=== PATIENT | female | born 1980 | race Caucasian/White ===

== ENCOUNTER 2016-11-29 21:58 | Emergency (ER) | payer SELFPAY ==
[~2016-11-29] VITALS: Ht 170.2 cm; Wt 90.7 kg
[~2016-11-29 21:58] MED LIST: HYDR-3729 PO; IBP600T1 PO; MEDR10TA PO; PNV1TABL9 PO
[2016-11-29] MEDS ORDERED: PNV1COMB25 PO (22:11)
[2016-11-29 22:42] LABS: BASOPHILS % (AUTO) 0 % (0-10); BILIRUBIN,URINE NEGATIVE (NEGATIVE); EOSINOPHILS # (AUTO) 0.1 10^3/uL (0.0-0.3); EOSINOPHILS % (AUTO) 2 % (0-10); KETONES,URINE NEGATIVE (NEGATIVE); LEUKOCYTE ESTERASE ,URINE 2+ (NEGATIVE); LYMPHOCYTES # (AUTO) 1.4 X 10^3 (1.0-4.0); LYMPHOCYTES % (AUTO) 19 % (12-44); MEAN CORPUSCULAR HEMOGLOBIN 30 PG (25-34); MEAN CORPUSCULAR HGB CONC 33 G/DL (32-36); MEAN CORPUSCULAR VOLUME 91 FL (80-99); MEAN PLATELET VOLUME 9.4 FL (7.4-10.4); MONOCYTES # (AUTO) 0.6 X 10^3 (0.0-1.0); MONOCYTES % (AUTO) 8 % (0-12); NEUTROPHILS # (AUTO) 5.1 X 10^3 (1.8-7.8); NEUTROPHILS % (AUTO) 71 % (42-75); NITRITE,URINE NEGATIVE (NEGATIVE); PH,URINE 6.5 (5-9); PLATELET COUNT 337 10^3/uL (130-400); PROTEIN,URINE 2+ (NEGATIVE); RED BLOOD COUNT 4.24 10^6/uL (4.35-5.85); RED CELL DISTRIBUTION WIDTH 13.2 % (10.0-14.5); UROBILINOGEN,URINE NORMAL (NORMAL); WHITE BLOOD COUNT 7.2 10^3/uL (4.3-11.0)
--- NOTE | 2016-11-29 22:46 | ED GU-Female ---
General Chief Complaint: -Female Stated Complaint: VAG BLEEDING Nursing Triage Note: APPROX. 6 WEEKS , REPORTS VAGINAL BLEEDING STARTING 11/28/17 WITH CLOT PASSAGE TODAY. Nursing Sepsis Screen: No Definite Risk Source: patient Exam Limitations: no limitations History of Present Illness Time seen by provider: 22:46 Initial Comments 35-year-old female patient presents to the emergency department with complaints of vaginal bleeding beginning yesterday. States she did have intercourse with her Wednesday. Patient reports spotting yesterday with passing a large clots today. Patient estimates to be between 6-8 weeks gestation. Reports lower abdominal cramping earlier today when passing a clot. Timing/Duration: yesterday, intermittent Severity/Quality: cramping Location: suprapubic Radiation: none Activities at Onset: none Prior Genitourinary Problems: similar symptoms Sexual [place] History: less than 2 months ago, single partner Modifying Factors: Improves With Other (denies modifying factors.) Allergies and Home Medications Allergies Coded Allergies: tramadol (Unverified Adverse Reaction, Mild, N/V, 12/21/14) Home Medications Cephalexin 500 Mg Capsule #21 500 MG PO TID Prescribed by: MILA DIEGO on 11/30/16 0036 Pnv #116/Iron Fumarate/FA/Dha 1 Each Combo..pkg 1 EACH PO UD (Reported) Constitutional: No chills, No dizziness, No fever, No malaise, No weakness Respiratory: no symptoms reported Cardiovascular: no symptoms reported Gastrointestinal: see HPI abdominal pain (suprapubic abdominal pain)No constipation, No diarrhea, No loss of appetite, No nausea, No vomiting Genitourinary: see HPIdenies burning, denies dysuria, denies frequency, denies flank pain, denies pain Musculoskeletal: no symptoms reported Skin: no symptoms reported Psychiatric/Neurological: No Symptoms Reported All Other Systemes Reviewed Negative Unless Noted: Yes (Negative excepted noted.) Past Idtqwju-Tynztc-Epqwxu Hx Patient Social History Alcohol Use: Denies Use Recreational Drug Use: No Smoking Status: Never a Smoker Former Smoker/When Quit: Apr 23, 2014 Recent Foreign Travel: No Contact w/Someone Who Travel: No Recent Infectious Disease Expo: No Recent Hopitalizations: No Physical Abuse Screen: No Sexual Abuse: No Immunizations Up To Date Tetanus Booster (TDap): Unknown PED Vaccines UTD: No Date of Influenza Vaccine: Aug 13, 2014 Seasonal Allergies Seasonal Allergies: No Surgeries HX Surgeries: Yes Surgeries: Section Respiratory Hx Respiratory Disorders: No Cardiovascular Hx Cardiac Disorders: No Neurological Hx Neurological Disorders: No Reproductive System : Yes Hx : 5 Hx Para: 2 Hx Total # of Abortions (Spona: 2 Hx Reproductive Disorders: No Female Reproductive Disorders: Denies Genitourinary Hx Genitourinary Disorders: No Gastrointestinal Hx Gastrointestinal Disorders: No Musculoskeletal Hx Musculoskeletal Disorders: No Endocrine Hx Endocrine Disorders: No HEENT HX ENT Disorders: No (GLASSES) Cancer Hx Cancer: No Psychosocial Hx Psychiatric Problems: No Integumentary HX Skin/Integumentary Disorder: No Blood Transfusions Hx Blood Disorders: Yes (HX OF ANEMIA) Adverse Reaction to a Blood Tr: No Reviewed Nursing Assessment Reviewed/Agree w Nursing PMH: Yes Family Medical History Significant Family History: No Pertinent Family Hx, Other Conditions/Hx Family Medial History: Abdominal aortic aneurysm 19 FATHER GRANDPARENTS Alzheimer's disease GRANDPARENTS Cardiovascular disease 19 FATHER 19 MOTHER GRANDPARENTS Diabetes mellitus 19 MOTHER GRANDPARENTS Glaucoma GRANDPARENTS Hypertension 19 FATHER 19 MOTHER GRANDPARENTS Myocardial infarction 19 FATHER GRANDPARENTS No Family History of: AIDS Alcoholism Arthritis Asthma Cancer of mouth Cataracts Colon cancer Completed stroke Dementia Drug abuse Dysphasia Kidney disease Parkinson's disease Prostate cancer Psychosocial problem Seizure disorder Thyroid disease Tuberculosis Physical Exam Vital Signs Vital Sign - Last 12Hours 11/29/16 22:11 Temp 98.0 Pulse 74 Resp 16 B/P 153/73 Pulse Ox 100 O2 Delivery Room Air Capillary Refill : Less Than 3 Seconds General Appearance: WD/WN no apparent distress Neck: supple normal inspection Cardiovascular: normal peripheral pulses regular rate, rhythm no edema no murmur Respiratory: lungs clear normal breath sounds no respiratory distress Gastrointestinal: normal bowel sounds non tender soft no organomegalyNo distended Pelvic: other (deferred due to patient scheduled to see Dr. Hurst on . ) Back: normal inspection no CVA tenderness Extremities: no pedal edema no calf tenderness normal capillary refill Neurologic/Psychiatric: alert normal mood/affect oriented x 3 Skin: normal color warm/dry Progress/Results/Core Measures Results/Orders Lab Results Laboratory Tests Test 11/29/16 22:32 Range/Units Basophils # (Auto) 0.0 0.0-0.1 10^3/uL Basophils (%) (Auto) 0 0-10 % Eosinophils # (Auto) 0.1 0.0-0.3 10^3/uL Eosinophils (%) (Auto) 2 0-10 % Hematocrit 39 35-52 % Hemoglobin 12.8 11.5-16.0 G/DL Human Chorionic Gonadotropin, Quant 208 H <5 MIU/ML Lymphocytes # (Auto) 1.4 1.0-4.0 X 10^3 Lymphocytes (%) (Auto) 19 12-44 % Mean Corpuscular Hemoglobin 30 25-34 PG Mean Corpuscular Hemoglobin Concent 33 32-36 G/DL Mean Corpuscular Volume 91 80-99 FL Mean Platelet Volume 9.4 7.4-10.4 FL Monocytes # (Auto) 0.6 0.0-1.0 X 10^3 Monocytes (%) (Auto) 8 0-12 % Neutrophils # (Auto) 5.1 1.8-7.8 X 10^3 Neutrophils (%) (Auto) 71 42-75 % Platelet Count 337 130-400 10^3/uL Red Blood Count 4.24 L 4.35-5.85 10^6/uL Red Cell Distribution Width 13.2 10.0-14.5 % Urine Bacteria MODERATE H /HPF Urine Bilirubin NEGATIVE NEGATIVE Urine Casts NONE /LPF Urine Clarity VERY CLOUDY H Urine Color KUNAL H Urine Crystals NONE /LPF Urine Culture Indicated YES Urine Glucose (UA) NEGATIVE NEGATIVE Urine Ketones NEGATIVE NEGATIVE Urine Leukocyte Esterase 2+ H NEGATIVE Urine Mucus MODERATE H /LPF Urine Nitrite NEGATIVE NEGATIVE Urine Protein 2+ H NEGATIVE Urine RBC 2-5 H /HPF Urine RBC (Auto) 5+ H NEGATIVE Urine Specific [place] 1.015 L 1.016-1.022 Urine Squamous Epithelial Cells 25-50 H /HPF Urine Urobilinogen NORMAL NORMAL MG/DL Urine WBC 10-25 H /HPF Urine pH 6.5 5-9 White Blood Count 7.2 4.3-11.0 10^3/uL My Orders Orders-MILA DIEGO Cbc With Automated Diff (11/29/16 22:16) Hcg,Quantitative (11/29/16 22:16) Ua Culture If Indicated (11/29/16 22:16) Urine Culture (11/29/16 22:32) Us Ob<14 Wks Sngle W/Transvag (11/29/16 22:16) Rx-Cephalexin Capsule (Rx-Keflex Capsule (11/30/16 00:34) Vital Signs/I&O Vital Sign - Last 12Hours 11/29/16 22:11 Temp 98.0 Pulse 74 Resp 16 B/P 153/73 Pulse Ox 100 O2 Delivery Room Air Blood Pressure Mean: 99 Diagnostic Imaging Diagonstic Imaging: Ultrasound Plain Films/CT/US/NM/MRI: pelvis Comments endometrium measures 7 mm. No IUP. Reviewed: Other ([employer] report reviewed by me.) Departure Communication Progress Notes Laboratory and diagnostic findings discussed with the patient. Plan for discharge to home with follow-up as an outpatient on as previously scheduled with Dr. Hurst. All return precautions were discussed with the patient as described in the discharge instructions of this report. Patient voices understanding and agrees with the treatment plan. Patient case discussed with Dr. Baez, he agrees with the plan of care. Impression Impression: Primary Impression: Spontaneous miscarriage Additional Impression: Urinary tract infection Disposition: HOME, SELF-CARE Condition: Improved Departure-Patient Inst. Decision time for Depature: 00:35 Referrals: ERVIN HURST MD (PCP) Primary Care Physician NO,LOCAL PHYSICIAN (Family) Primary Care Physician Patient Instructions: Miscarriage (DC), Urinary Tract Infection, Adult (DC) Add. Discharge Instructions: All discharge instructions reviewed with patient and/or family. Voiced understanding. Medications as instructed. Tylenol Extra Strength over-the- counter as directed for pain. Ibuprofen kyne-mdz-rrtbrgd as directed for pain as needed. Drink plenty of fluids. No strenuous activity, heavy lifting, intercourse, or tampon use until released by Dr. Hurst. Follow-up with Dr. Hurst as previously scheduled for recheck, repeat labs, and for final reading of ultrasound. Return to the emergency department immediately for worsened pain, fever, vaginal bleeding with greater than 2 pads per hour for greater than 2 hours, abdominal swelling, inability urinate, or any other concerns. Scripts Cephalexin 500 Mg [id number] Mg PO TID #21 CAP Ref 0 Prov:MILA DIEGO 11/30/16 Work/School Note: Work Release Form Date Seen in the Emergency Department: Nov 30, 2016 Return to Work: Dec 01, 2016 Other Restrictions Listed Below: no heavy lifting or strenous activity until released by Dr. Hurst. MILA DIEGO Nov 29, 2016 22:46
[2016-11-29 22:54] LABS: SQUAMOUS EPITHELIAL CELL,UR 25-50 /HPF
[2016-11-30] MEDS ORDERED: RX-CEPHALEXIN (KEFLEX) 250 MG CAP PPK#4 PO STA (00:34)
[2016-11-30] MEDS ORDERED: CEPH500C PO (00:36)
[2016-11-30 00:42] VITALS: BP 130/75
--- NOTE | 2016-11-30 07:53 | Diagnostic Imaging Report ---
Clinical indication: Patient with vaginal bleeding. Patient has beta-hCG of 208. Patient with gestational age of 10 weeks, 6 days. LMP is 09/14/2016. Exam: Transabdominal and transvaginal ultrasound. Comparison: None. Findings: The uterus has normal size, shape and echogenicity and measures 7.5 cm x 4.8 cm x 6.1 cm. The endometrial stripe measures 7 mm. There is no evidence of gestational sac or intrauterine . Right and left ovaries are not visualized on this exam. Otherwise, the right and left adnexal regions show no gross abnormality. There is no significant pelvic free fluid. IMPRESSION: 1: There is no intrauterine or gestational sac seen. It is reported that patient has expected gestational age of 10 weeks, 6 days which is concerning for spontaneous of . If LMP and gestational age is not known, then this may represent a very early and trending of hCG's and followup pelvic ultrasound would be suggested. 2: The bilateral ovaries are not visualized on this exam. 3: The remainder of this exam shows no other significant abnormality. I agree with [employer] report. Dictated by: Dictated on workstation # [id number]
== END 2016-11-30 00:42 | disposition home or self-care (01) ==
LOC: EDUNIT# 21:58 → ER 22:03
DX: O03.9 Complete or unspecified spontaneous abortion without complication (principal); Z3A.01 Less than 8 weeks gestation of pregnancy; N39.0 Urinary tract infection, site not specified
CPT/HCPCS: 36415; 76801; 76817; 81000; 84702; 85025; 87088

== ENCOUNTER → 2017-06-03 | Outpatient (CLI) | payer MEDICAID ==
[~2017-06-03] MED LIST changes: +CEPH500C PO; +PNV1COMB25 PO
--- NOTE | 2017-06-03 14:01 | Diagnostic Imaging Report ---
First trimester OB ultrasound. INDICATION: Dating. FINDINGS: There is a normal-appearing single intrauterine . An embryo is seen with cardiac activity at 150 beats per minute. The crown-rump length is at 12 weeks and 3 days. HERIBERTO is 12/13/17. The ovaries are not seen, likely obscured by bowel gas. IMPRESSION: Live single intrauterine . Dictated by: Dictated on workstation # [id number]
== END ==
LOC: RAD 12:41
PROVIDERS: ATTEND Family Medicine
DX: Z36 Encounter for antenatal screening of mother (principal); Z3A.12 12 weeks gestation of pregnancy
CPT/HCPCS: 76801

== ENCOUNTER → 2017-07-22 | Outpatient (CLI) | payer MEDICAID ==
--- NOTE | 2017-07-22 20:17 | Diagnostic Imaging Report ---
INDICATION: survey. TECHNIQUE: Multiple real-time grayscale images were obtained over the gravid uterus. COMPARISON: 06/03/2017. FINDINGS: The previous OB ultrasound exam of 06/03/2017 noted a single live fetus at approximately 12 weeks 3 days gestation +/-1 week. The fetus is again identified on this study. The fetus is in variable presentation. heart motion was noted and a rate of 152 BPM was recorded. There were no abnormalities identified but the spine and four-chamber heart view were less than optimal. The placenta is posterior and there is no previa. The amniotic fluid volume is within normal limits. The growth parameters are fairly uniform. The cervix was identified and measures 5.4 cm in length. IMPRESSION: 1. There is a single live fetus at approximately 19 weeks 3 days gestation +/-1 week. The EDC remains December 13, 2017. 2. There were no abnormalities identified but the four-chamber heart view and the spine were not well imaged. A short-term (4-6 week) followup OB ultrasound exam would be recommended for further study. 3. The growth parameters are fairly uniform and have progressed as expected since the prior exam. Biometrical measurements are as follows: Biparietal 3.78 cm, age 17 weeks 4 days. Head circumference 14.96 cm, age 18 weeks 1 days. Abdominal circumference 13.8 cm, age 19 weeks 2 days. Femur length 2.8 cm, age 18 weeks 4 days. Sonographic estimate age: 18 weeks 3 days. Sonographic estimated date of delivery: 12/20/2017. Estimated Weight: 257 gm (+/- 38 gm). LMP percentile: 15%. heart rate: 152 beats per minute. number: 1 of 1. Dictated by: Dictated on workstation # [id number]
== END ==
LOC: RAD 13:39
PROVIDERS: ATTEND Family Medicine
DX: Z36 Encounter for antenatal screening of mother (principal); Z3A.19 19 weeks gestation of pregnancy
CPT/HCPCS: 76805

== ENCOUNTER → 2017-08-25 | Outpatient (CLI) | payer MEDICAID | LOC: RAD 13:56 | PROVIDERS: ATTEND Family Medicine | DX: Z3A.00 Weeks of gestation of pregnancy not specified; Z36.87 Encounter for antenatal screening for uncertain dates; Z53.29 Procedure and treatment not carried out because of patient's decision for other reasons ==

== ENCOUNTER 2017-12-06 05:40 | Outpatient (CLI) | payer MEDICAID ==
[~2017-12-06] VITALS: Ht 170.2 cm; Wt 117.9 kg
[2017-12-06] MEDS ORDERED: PREN-37 PO (11:08)
== END 2017-12-06 11:22 ==
LOC: PREOP 05:40
PROVIDERS: ATTEND Obstetrics & Gynecology
DX: Z01.818 Encounter for other preprocedural examination (principal); O34.211 Maternal care for low transverse scar from previous cesarean delivery

== ENCOUNTER 2017-12-09 05:50 | Inpatient (IN) | payer MEDICAID ==
[~2017-12-09] VITALS: Ht 170.2 cm; Wt 120.0 kg
[~2017-12-09 05:50] MED LIST changes: +CITRIC ACID/SOB CIT (BICITRA) 30 ML UDC ONE; +FAMOTIDINE 20MG/2ML IV (PEPCID) ONE; +LACTATED RINGERS 2,000 ML IV ONE; +METOCLOPRAMIDE INJ 10 MG/2 ML (REGLAN) ONE; +PREN-37 PO; +ceFAZolin 2 GM/50 ML NS 50 ML ONE
[2017-12-09] MEDS ORDERED: LACTATED RINGERS 1,000 ML IV SCH (06:17)
[2017-12-09 06:20] VITALS: BP 139/62
[2017-12-09] MEDS ORDERED: FAMOTIDINE 20MG/2ML IV (PEPCID) IV ONE (06:30)
[2017-12-09] MEDS ORDERED: ceFAZolin 2 GM/50 ML NS 50 ML IV ONE (06:30)
[2017-12-09] MEDS ORDERED: METOCLOPRAMIDE INJ 10 MG/2 ML (REGLAN) IV ONE (06:30)
[2017-12-09] MEDS ORDERED: CITRIC ACID/SOB CIT (BICITRA) 30 ML UDC PO ONE (06:30)
[2017-12-09] MEDS: LACTATED RINGERS 1,000 ML IV SCH ×2 (06:35→07:30)
[2017-12-09 06:42] LABS: BASOPHILS % (AUTO) 0 % (0-10); EOSINOPHILS # (AUTO) 0.2 10^3/uL (0.0-0.3); EOSINOPHILS % (AUTO) 2 % (0-10); HEMATOCRIT 39 % (35-52); HEMOGLOBIN 13.3 G/DL (11.5-16.0); LYMPHOCYTES # (AUTO) 2.2 X 10^3 (1.0-4.0); LYMPHOCYTES % (AUTO) 18 % (12-44); MEAN CORPUSCULAR HEMOGLOBIN 32 PG (25-34); MEAN CORPUSCULAR HGB CONC 35 G/DL (32-36); MEAN CORPUSCULAR VOLUME 92 FL (80-99); MEAN PLATELET VOLUME 9.7 FL (7.4-10.4); MONOCYTES # (AUTO) 0.8 X 10^3 (0.0-1.0); MONOCYTES % (AUTO) 7 % (0-12); NEUTROPHILS # (AUTO) 8.9 X 10^3 (1.8-7.8); NEUTROPHILS % (AUTO) 73 % (42-75); PLATELET COUNT 313 10^3/uL (130-400); RED CELL DISTRIBUTION WIDTH 13.1 % (10.0-14.5); WHITE BLOOD COUNT 12.2 10^3/uL (4.3-11.0)
[2017-12-09] MEDS: KETOROLAC 30 MG/ML VIAL IVP SCH ×3 (06:45→18:45)
[2017-12-09] MEDS ORDERED: PHENYLEPHRINE 100 MCG/ML 10 ML (ANESTHESIA) SYR ONE (06:45)
[2017-12-09] MEDS ORDERED: ONDANSETRON 4 MG/2 ML (SDV) Z0FRAN ONE (06:45)
[2017-12-09] MEDS ORDERED: KETOROLAC 30 MG/ML VIAL ONE (06:45)
[2017-12-09] MEDS ORDERED: OXYTOCIN/NORMAL SALINE 1,000 ML IV ONE (06:45)
[2017-12-09] MEDS ORDERED: KETAMINE HCL 100 MG/ML 5 ML VIAL ONE (06:47)
[2017-12-09] MEDS ORDERED: fentaNYL INJECTION 100 MCG/2 ML AMP ONE (06:48)
[2017-12-09] MEDS ORDERED: CATHETER FLUSH 10 ML SYR IV PRN (07:00)
[2017-12-09] MEDS ORDERED: INFLUENZA TRIvalent 2017-2018 0.5 ML/45 MCG SYR IM ONE (07:00)
[2017-12-09] MEDS ORDERED: OXYTOCIN/NORMAL SALINE 500 ML IV SCH (07:04)
--- NOTE | 2017-12-09 07:11 | History & Physical-OB ---
OB - Chief Complaint & HPI Date/Time Date of Admission: Date of Admission: Dec 09, 2017 at 6:13 am Time Seen by Provider: 07:00 Chief Complaint/History OB-Reason for Admission/Chief: Section Hx : 6 Hx Para: 2 Expected Date of Delivery: Dec 13, 2017 Gestational Age in Weeks: 39 Gestational Age in Days: 3 Indication for : desires repeat Admission Nurse Assessment Rev: Yes History of Labs A pos Antibody neg RI RPR NR HBsAg NR HIV NR GC GBS neg Allergies and Home Medications Allergies Coded Allergies: tramadol (Unverified Adverse Reaction, Mild, N/V, 12/21/14) Home Medications Vit/Iron Fumarate/FA 1 Each Tablet, 1 EACH PO DAILY, (Reported) OB - History Hx of Present Care: Yes Ultrasounds: Normal mid trimester US Obstetrical Complications: None Medical Complications: None Obstetrical History Hx Termination: No Hx Multiple Gestation: No Hx Stillbirth: No Hx Complication: No Hx Induced Hypertens: No Hx Maternal Gestational Diabet: No Delivery History Hx Section: Yes Hx Blood Disorders: Yes (HX OF ANEMIA) Adverse Rxn to Tranfusion: No Patient Past Medical History Hx of Migraines Social History/Family History Recent Infectious Disease Expo: No Alcohol Use: Denies Use Recreational Drug Use: No Immunizations Hepatitis A: No Hepatitis B: No Tetanus Booster (TDap): Unknown Date of Influenza Vaccine: Aug 13, 2014 OB - Admission Exam Physical Exam Vitals: Vital Signs 12/09/17 06:20 Temp 96.1 Pulse 84 Resp 18 B/P (MAP) 139/62 (87) HEENT: NCAT Heart: Rhythm Normal Lungs: Clear Abdomen: Gravid Extremities: Normal Reflexes: Normal Heart Rate: 130's Accelerations: Accelerations Present Decelerations: No Decelerations Nursing Home Variability: Average (6-25) Contractions on Admission: >10 Minutes Apart Intensity: Mild Labs Laboratory Tests Test 12/09/17 06:30 Range/Units White Blood Count 12.2 H 4.3-11.0 10^3/uL Red Blood Count 4.20 L 4.35-5.85 10^6/uL Hemoglobin 13.3 11.5-16.0 G/DL Hematocrit 39 35-52 % Mean Corpuscular Volume 92 80-99 FL Mean Corpuscular Hemoglobin 32 25-34 PG Mean Corpuscular Hemoglobin Concent 35 32-36 G/DL Red Cell Distribution Width 13.1 10.0-14.5 % Platelet Count 313 130-400 10^3/uL Mean Platelet Volume 9.7 7.4-10.4 FL Neutrophils (%) (Auto) 73 42-75 % Lymphocytes (%) (Auto) 18 12-44 % Monocytes (%) (Auto) 7 0-12 % Eosinophils (%) (Auto) 2 0-10 % Basophils (%) (Auto) 0 0-10 % Neutrophils # (Auto) 8.9 H 1.8-7.8 X 10^3 Lymphocytes # (Auto) 2.2 1.0-4.0 X 10^3 Monocytes # (Auto) 0.8 0.0-1.0 X 10^3 Eosinophils # (Auto) 0.2 0.0-0.3 10^3/uL Basophils # (Auto) 0.0 0.0-0.1 10^3/uL OB - Assessment/Plan/Diagnosis Assessment Assessment: section Plan Plan: Section Discharge Diagnosis Diagnosis: 36 @ 39.2 Previous x 2 KAREN SKY DO Dec 09, 2017 7:11 am
[2017-12-09] MEDS ORDERED: MEASLES,MUMPS,RUBELLA 1 EA INJ SC SCH (07:15)
[2017-12-09] MEDS ORDERED: TETANUS,DIPTH,PERTUSS P/F (BOOSTRIX) 0.5 ML VIAL IM SCH (07:15)
[2017-12-09] MEDS ORDERED: ONDANSETRON 4 MG/2 ML (SDV) Z0FRAN IVP PRN (07:15)
[2017-12-09] MEDS ORDERED: HYDROmorphone (DILAUDID) 2 MG/ML VIAL IVP PRN (07:15)
--- NOTE | 2017-12-09 07:23 | Discharge Inst-Women's Service ---
Discharge Inst-Women's Serv Depart Medication/Instructions New, Converted or Re-Newed RX: RX on Chart Consults/Follow Up Additional Follow Up: Yes Orders/Referrals Dr. David in 7-[address] Valdez in 6 weeks Activity Activity: Activity as Tolerated Driving Instructions: No Driving for 1 Week NO SMOKING: NO SMOKING Nothing Inside Vagina: No Douching, No [place], No Tampons Diet Discharge Diet: No Restrictions Symptoms to Report to : Bleeding Excessive, Pain Increased, Fever Over 101 Degrees F, Vaginal Bleeding Increase, Questions/Concerns For Any Problems or Questions: Contact Your Physician Skin/Wound Care Infection Signs and Symptoms: Increased Redness, Foul Odor of Wound, Increased Drainage, Skin Itchy or Has a Rash, Increased Swelling, Temperature Above 101 F Operative Area Clean and Dry: Keep Incision Clean/Dry Stitches/[place]/Dermabond: Dermabond, Care of Stitches Bathing Instructions: KAREN Lin DO Dec 09, 2017 7:23 am
[2017-12-09] MEDS ORDERED: ACHD5005 PO (09:30)
[2017-12-09] MEDS ORDERED: IBUP-1773 PO (09:30)
[2017-12-09] MEDS ORDERED: DOCU100C37 PO (09:30)
[2017-12-09 09:45] VITALS: BP 104/58
[2017-12-09] MEDS: HYDROcodone/APAP 5 MG/325 MG (LORTAB) TAB PO PRN ×3 (11:34→18:45)
--- NOTE | 2017-12-09 12:33 | OPERATIVE REPORT ---
DATE OF SERVICE: PREOPERATIVE DIAGNOSES: 1. A 36-year-old G5, P2 at 39 weeks and 3 days gestation. 2. Previous section x2. POSTOPERATIVE DIAGNOSES: 1. A 36-year-old G5, P2 at 39 weeks and 3 days gestation. 2. Previous section x2. PROCEDURE: Repeat low transverse section. SURGEON: Kamari David DO. ASSISTANTS: 1. Klaus Valdez MD. 2. BRENNEN Castillo. 3. Greg Lopez MS3. ANESTHESIA: Spinal. ESTIMATED BLOOD LOSS: 400 mL. FLUIDS: 1400 mL of lactated Ringer solution. URINE OUTPUT: 125 mL clear drained at the end of the procedure. FINDINGS: A live female infant weighing 6 pounds 15 ounces, Apgars of 9 and 9. Grossly normal appearing uterus, bilateral fallopian tubes and ovaries. SPECIMEN SENT: None. INDICATIONS FOR PROCEDURE: This 36-year-old female was a patient who had sought care with Dr. Valdez. She was a consultation in my office for repeat . She had prior cesareans performed on her previous two deliveries. The first delivery was performed due to failure to progress and the second was a repeat elective. In preoperative consultation, I reviewed with the patient the procedure in detail which she was very familiar with. Reviewed the risk of the procedure with her in detail. All of her questions were answered with her present. Consent was obtained in the preoperative area and the patient was taken to the operating room. OPERATIVE REPORT IN DETAIL: Once in the operating room, spinal analgesia was found to be adequate. She was placed in supine position with a leftward tilt and prepped and draped in normal sterile fashion. Timeout was performed. A Pfannenstiel skin incision was made through the previously existing scar using a knife and carried down to the underlying fascia using Bovie cautery. The fascial incision was extended laterally using Bovie cautery. The superior edge of the fascial incision was then grasped with Eric clamps, tented up and dissected off the underlying lower rectus muscles. The inferior aspect of the fascial incision was then grasped with Eric clamps, tented up and dissected off the underlying rectus muscles. Rectus muscles were dissected down the midline using Culver scissors, which exposed the peritoneum, which I entered with blunt traction and extended with blunt traction. An Ziggy ring retractor was placed within the peritoneal incision, which offers excellent lateral sidewall retraction. I then make a low transverse incision with a knife on the lower uterine segment and bluntly dissect the bladder flap off of the lower uterine segment. I proceeded with myotomy until membranes were visualized, at which point I extended the uterine incision laterally and superiorly using bandage scissors and iatrogenically rupture of the membranes with clear fluid was noted at that time. The is found in the vertex presentation. I elevated the 's head up to the incision. With gentle fundal pressure, the infant's head is delivered to the incision where the nares and oropharynx are bulb suctioned. Anterior and posterior shoulders were delivered. was then brought to the operative field with the cord is doubly clamped and cut and was handed off to Dr. Valdez and his pediatric team. Cord blood was collected. Three-vessel cord was intact. Placenta was delivered spontaneously thereafter. IV Pitocin is initiated to facilitate uterine contraction. Uterine fundus becomes firmer with bimanual massage. The uterus was then exteriorized and cleared of all endometrial clots and debris. I then proceeded with closing the uterine incision using 0 Vicryl suture in running locked fashion. A second layer of imbricating 0 Monocryl was placed. Excellent hemostasis was noted after doing this. A qkflqc-[id number] suture was placed in two separate locations on the uterine incision due to persistent bleeding after which there is no active bleeding noted from the incision and then placed the uterus back within the pelvis and copiously irrigated the pelvis using normal saline. Once again, no active bleeding is noted from any of my dissection planes. I placed Interceed antiadhesive over my low transverse incision and then proceed with closing the peritoneum using 2-0 Vicryl suture in running fashion. I included the rectus muscle in this layer which reapproximated the rectus muscles. I then closed the fascia using 0 Vicryl suture in a running locked fashion. The subcutaneous tissue was reapproximated using 3-0 plain interrupted subcutaneous stitch. The skin was reapproximated using 4-0 Monocryl in a running subcuticular. Dermabond was applied to incision. Sterile dressings were adhesed with a white tape. Two grams Ancef were given preoperatively for infection prophylaxis. Lap and sponge counts were correct at the end of the procedure. Instrument count was correct as well. The patient tolerated the procedure well and sent to recovery in stable condition. Job ID: [id number] DocumentID: [id number] Dictated Date: 12/09/2017 09:35:50 Bowling Teacher Date: 12/09/2017 12:32:51 Dictated By: DO SAÚL BISHOP
[2017-12-09] MEDS ORDERED: CATHETER FLUSH 10 ML SYR IV SCH (14:00)
[2017-12-09 15:55] VITALS: BP 108/69
[2017-12-09 18:45] VITALS: BP 118/56
[2017-12-09 21:11] VITALS: BP 113/69
[2017-12-09] MEDS: DOCUSATE SODIUM 100 MG (COLACE) CAP PO SCH (21:12)
[2017-12-10] MEDS: KETOROLAC 30 MG/ML VIAL IVP SCH (00:46)
[2017-12-10 00:49] VITALS: BP 118/69
[2017-12-10 05:41] LABS: BASOPHILS % (AUTO) 0 % (0-10); EOSINOPHILS # (AUTO) 0.2 10^3/uL (0.0-0.3); EOSINOPHILS % (AUTO) 2 % (0-10); HEMATOCRIT 33 % (35-52); HEMOGLOBIN 11.2 G/DL (11.5-16.0); LYMPHOCYTES # (AUTO) 1.9 X 10^3 (1.0-4.0); LYMPHOCYTES % (AUTO) 19 % (12-44); MEAN CORPUSCULAR HEMOGLOBIN 31 PG (25-34); MEAN CORPUSCULAR HGB CONC 34 G/DL (32-36); MEAN CORPUSCULAR VOLUME 93 FL (80-99); MEAN PLATELET VOLUME 9.2 FL (7.4-10.4); MONOCYTES # (AUTO) 0.6 X 10^3 (0.0-1.0); MONOCYTES % (AUTO) 6 % (0-12); NEUTROPHILS # (AUTO) 7.3 X 10^3 (1.8-7.8); NEUTROPHILS % (AUTO) 73 % (42-75); PLATELET COUNT 247 10^3/uL (130-400); RED BLOOD COUNT 3.59 10^6/uL (4.35-5.85); RED CELL DISTRIBUTION WIDTH 13.2 % (10.0-14.5)
[2017-12-10] MEDS: IBUPROFEN 600 MG (MOTRIN) TAB PO SCH ×3 (06:47→21:11)
[2017-12-10 06:48] VITALS: BP 111/65
[2017-12-10 09:45] VITALS: BP 112/60
[2017-12-10] MEDS: DOCUSATE SODIUM 100 MG (COLACE) CAP PO SCH ×2 (09:45→21:11)
--- NOTE | 2017-12-10 10:04 | Progress Note-Standard ---
Standard Progress Note Progress Notes/Assess & Plan Date Seen by Provider: Dec 10, 2017 Time Seen by Provider: 08:45 Progress/Assessment & Plan Patient doing well POD 1 RLTCS. Reports good pain control. Ambulating and voiding freely. Lochia light. Vital Sign - Last 24 Hours 12/09/17 12/09/17 12/09/17 12/09/17 12:20 15:55 18:45 21:11 Temp 98.1 97.8 98.5 97.6 Pulse 73 97 79 Resp 18 B/P (MAP) 108/69 (82) 118/56 (76) 113/69 (84) Pulse Ox 97 97 96 O2 Delivery Room Air Room Air Room Air 12/10/17 12/10/17 00:49 06:48 Temp 98.1 98.0 Pulse 76 76 Resp 18 B/P (MAP) 118/69 (85) 111/65 (80) Pulse Ox 97 97 O2 Delivery Room Air Room Air Intake and Output 12/09/17 12/09/17 12/10/17 15:00 23:00 07:00 Intake Total 1050 ml 240 ml 850 ml Output Total 525 ml 550 ml 500 ml Balance 525 ml -310 ml 350 ml Incision: c/d/i Laboratory Tests Test 12/10/17 05:30 Range/Units White Blood Count 10.0 4.3-11.0 10^3/uL Red Blood Count 3.59 L 4.35-5.85 10^6/uL Hemoglobin 11.2 L 11.5-16.0 G/DL Hematocrit 33 L 35-52 % Mean Corpuscular Volume 93 80-99 FL Mean Corpuscular Hemoglobin 31 25-34 PG Mean Corpuscular Hemoglobin Concent 34 32-36 G/DL Red Cell Distribution Width 13.2 10.0-14.5 % Platelet Count 247 130-400 10^3/uL Mean Platelet Volume 9.2 7.4-10.4 FL Neutrophils (%) (Auto) 73 42-75 % Lymphocytes (%) (Auto) 19 12-44 % Monocytes (%) (Auto) 6 0-12 % Eosinophils (%) (Auto) 2 0-10 % Basophils (%) (Auto) 0 0-10 % Neutrophils # (Auto) 7.3 1.8-7.8 X 10^3 Lymphocytes # (Auto) 1.9 1.0-4.0 X 10^3 Monocytes # (Auto) 0.6 0.0-1.0 X 10^3 Eosinophils # (Auto) 0.2 0.0-0.3 10^3/uL Basophils # (Auto) 0.0 0.0-0.1 10^3/uL Diagnosis: POD 1 RLTCS P: Continue routine PO care Anticipate dc tomorrow. KAREN SKY DO Dec 10, 2017 10:04 am
[2017-12-10] MEDS: HYDROcodone/APAP 5 MG/325 MG (LORTAB) TAB PO PRN (11:25)
--- NOTE | 2017-12-10 13:21 | Anesthesia-Regional Post-Op ---
Regional Patient Condition Mental Status: Alert, Oriented x3 Circulation: Same as Pre-Op Headache: Absent Sensation: Full Recovery Motor Block: Absent Post Op Complications Complications None Follow Up Care/Instructions Patient Instructions None needed. Anesthesia/Patient Condition Patient is doing well, ambulating, no complaints, stable vital signs, no apparent adverse anesthesia problems. MILA CALLAWAY DO Dec 10, 2017 13:21
[2017-12-10 15:23] VITALS: BP 116/59
[2017-12-10 20:50] VITALS: BP 109/65
[2017-12-11] MEDS: HYDROcodone/APAP 5 MG/325 MG (LORTAB) TAB PO PRN ×2 (02:44→21:00)
[2017-12-11] MEDS: IBUPROFEN 600 MG (MOTRIN) TAB PO SCH ×4 (02:45→21:00)
[2017-12-11 03:11] VITALS: BP 132/79
[2017-12-11] MEDS: DOCUSATE SODIUM 100 MG (COLACE) CAP PO SCH ×2 (08:44→21:00)
[2017-12-11 09:00] VITALS: BP 113/65
[2017-12-11] MEDS ORDERED: INFLUENZA TRIvalent 2017-2018 0.5 ML/45 MCG SYR IM ONE (11:02)
--- NOTE | 2017-12-11 11:30 | Progress Note-Standard ---
Standard Progress Note Progress Notes/Assess & Plan Date Seen by Provider: Dec 11, 2017 Time Seen by Provider: 11:15 Progress/Assessment & Plan Patient doing well POD 2 RLTCS. Reports good pain control. Ambulating and voiding freely. Lochia light. Vital Sign - Last 24 Hours 12/10/17 12/10/17 12/11/17 12/11/17 15:23 20:50 03:11 09:00 Temp 97.9 98.7 98.6 98.2 Pulse 80 78 88 72 Resp 16 B/P (MAP) 116/59 (78) 109/65 (80) 132/79 (96) 113/65 (81) Pulse Ox 99 97 98 98 O2 Delivery Room Air Room Air Room Air Room Air Intake and Output 12/10/17 12/10/17 12/11/17 15:00 23:00 07:00 Intake Total 950 ml Output Total 1050 ml Balance -100 ml Incision: c/d/i Diagnosis: POD 2 RLTCS P: Continue routine PO care Anticipate later today pending release. KAREN SKY DO Dec 11, 2017 11:30 am
[2017-12-11 15:00] VITALS: BP 114/66
[2017-12-11 21:00] VITALS: BP 125/78
[2017-12-12 03:00] VITALS: BP 121/71
[2017-12-12] MEDS: HYDROcodone/APAP 5 MG/325 MG (LORTAB) TAB PO PRN (03:22)
[2017-12-12] MEDS: IBUPROFEN 600 MG (MOTRIN) TAB PO SCH ×2 (03:22→09:30)
[2017-12-12] MEDS: DOCUSATE SODIUM 100 MG (COLACE) CAP PO SCH (09:30)
[2017-12-12 10:21] VITALS: BP 115/67
--- NOTE | 2017-12-12 10:41 | Progress Note-Standard ---
Standard Progress Note Progress Notes/Assess & Plan Date Seen by Provider: Dec 12, 2017 Time Seen by Provider: 10:30 Progress/Assessment & Plan Patient doing well POD 3 RLTCS. Reports good pain control. Ambulating and voiding freely. Lochia light. Vital Sign - Last 24 Hours 12/11/17 12/11/17 12/12/17 12/12/17 15:00 21:00 03:00 10:21 Temp 98.6 98.5 97.9 98.6 Pulse 71 92 62 78 Resp 16 18 B/P (MAP) 114/66 (82) 125/78 (94) 121/71 (88) 115/67 (83) Pulse Ox 100 99 98 98 O2 Delivery Room Air Room Air Room Air Room Air Incision: c/d/i Diagnosis: POD 3 RLTCS P: Continue routine PO care Anticipate dc today KAREN SKY DO Dec 12, 2017 10:41 am
== END 2017-12-12 16:40 | disposition home or self-care (01) | DRG 766 ==
LOC: LDRP 06:13
PROVIDERS: ADMIT Obstetrics & Gynecology; ATTEND Obstetrics & Gynecology
PROC: 10D00Z1 Extraction of Products of Conception, Low, Open Approach (ICD-10-PCS; principal; 2017-12-09 07:08)
DX: O34.211 Maternal care for low transverse scar from previous cesarean delivery (principal); Z3A.39 39 weeks gestation of pregnancy; Z37.0 Single live birth; Z23 Encounter for immunization
CPT/HCPCS: 36415; 85025; 86850; 86900; 86901; 87081; 90715; 94664

== ENCOUNTER → 2019-01-17 | Outpatient (CLI) | payer MEDICAID ==
[~2019-01-17] MED LIST changes: +ACHD5005 PO; -CITRIC ACID/SOB CIT (BICITRA) 30 ML UDC ONE; +DOCU100C37 PO; -FAMOTIDINE 20MG/2ML IV (PEPCID) ONE; +IBUP-1773 PO; -LACTATED RINGERS 2,000 ML IV ONE; -METOCLOPRAMIDE INJ 10 MG/2 ML (REGLAN) ONE; -ceFAZolin 2 GM/50 ML NS 50 ML ONE
--- NOTE | 2019-01-17 14:23 | Diagnostic Imaging Report ---
INDICATION: Size and dates. TECHNIQUE: Multiple real-time grayscale images were obtained over the gravid uterus. COMPARISON: None. FINDINGS: There is a single living intrauterine in breech presentation. There is a normal volume of amniotic fluid. Placenta is posterior. There is no previa. The biometry correlates with gestational age of 16 weeks 4 days. The anatomical survey is grossly unremarkable. Heart rate is 155 beats per minute and regular. IMPRESSION: Single living intrauterine with a sonographically estimated gestational age of 16 weeks 4 days and estimated date of confinement of 06/30/2019. Biometrical measurements are as follows: Biparietal 3.43 cm, age 16 weeks 5 days. Head circumference 12.72 cm, age 16 weeks 4 days. Abdominal circumference 11.00 cm, age 17 weeks 0 days. Femur length 1.96 cm, age 15 weeks 6 days. Sonographic estimate age: 16 weeks 4 days. Sonographic estimated date of delivery: 07/10/19. Estimated Weight: 154 gm (+/- 23 gm). LMP percentile: 48%. heart rate: 155 beats per minute. number: 1 of 1. Dictated by: Dictated on workstation # [id number]
== END ==
LOC: RAD 11:12
PROVIDERS: ATTEND Family Medicine
DX: Z34.92 Encounter for supervision of normal pregnancy, unspecified, second trimester (principal); Z3A.16 16 weeks gestation of pregnancy
CPT/HCPCS: 76805

== ENCOUNTER → 2019-02-21 | Outpatient (CLI) | payer MEDICAID ==
--- NOTE | 2019-02-21 17:25 | Diagnostic Imaging Report ---
INDICATION: survey. TECHNIQUE: Multiple real-time grayscale images were obtained over the gravid uterus. COMPARISON: None. FINDINGS: There is a single live intrauterine of 21 weeks 5 days. Cardiac activity and motion are seen at real-time. No abnormality is seen but the intracranial structures and ventricles as well as four-chamber heart are not optimally visualized due to current lie. The placenta is posterior with no previa. There is a normal amount of amniotic fluid. IMPRESSION: There is a single live intrauterine of 21 weeks 5 days as dated by a prior study with normal progression of parameters since that time. Biometrical measurements are as follows: Biparietal 5.05 cm, age 21 weeks 3 days. Head circumference 19.65 cm, age 21 weeks 6 days. Abdominal circumference 16.07 cm, age 21 weeks 2 days. Femur length 3.77 cm, age 22 weeks 1 days. Sonographic estimate age: 21 weeks 5 days. Sonographic estimated date of delivery: 06/29/2019. Estimated Weight: 435 gm (+/- 64 gm). LMP percentile: 45%. heart rate: 146 beats per minute. number: 1 of 1. Dictated by: Dictated on workstation # [id number]
== END ==
LOC: RAD 16:23
PROVIDERS: ATTEND Family Medicine
DX: Z36.89 Encounter for other specified antenatal screening (principal); Z3A.21 21 weeks gestation of pregnancy
CPT/HCPCS: 76805

== ENCOUNTER → 2019-04-19 | Outpatient (CLI) | payer MEDICAID ==
--- NOTE | 2019-04-19 12:04 | Diagnostic Imaging Report ---
INDICATION: Followup survey. TECHNIQUE: Multiple Real-time grayscale images were obtained over the gravid uterus. COMPARISON: 02/21/2019. FINDINGS: There is a single fetus in cephalic presentation. The heart rate was recorded at 144 BPM. The placenta is posterior. A limited survey was performed to evaluate the brain and four-chamber heart. These were visualized and are unremarkable on today's study. IMPRESSION: Unremarkable limited obstetrical ultrasound. Dictated by: Dictated on workstation # [id number]
== END ==
LOC: RAD 10:09
PROVIDERS: ATTEND Family Medicine
DX: Z36.89 Encounter for other specified antenatal screening (principal); Z3A.00 Weeks of gestation of pregnancy not specified
CPT/HCPCS: 76816

== ENCOUNTER 2019-05-07 00:55 | Outpatient (CLI) | payer MEDICAID ==
[~2019-05-07] VITALS: Ht 170.2 cm; Wt 125.9 kg
--- NOTE | 2019-05-07 01:03 | NUR ---
ROSEMARIE MEDINA presented to unit via ambulatory from ED, accompanied by family , with c/o LOWER ABD PAIN and pressure. ROSEMARIE MEDINA weighed, gowned, voided, and to bed. EFHM and TOCO applied, VS taken. ROSEMARIE MEDINA oriented to bed controls, call light, TV, heat, and A/C controls.
[2019-05-07 01:09] VITALS: BP 129/64
[2019-05-07 01:19] LABS: BILIRUBIN,URINE NEGATIVE (NEGATIVE); CLARITY,URINE CLEAR; COLOR,URINE YELLOW; GLUCOSE, URINE (UA) NEGATIVE (NEGATIVE); KETONES,URINE 1+ (NEGATIVE); LEUKOCYTE ESTERASE ,URINE NEGATIVE (NEGATIVE); NITRITE,URINE NEGATIVE (NEGATIVE); PH,URINE 5 (5-9); PROTEIN,URINE 1+ (NEGATIVE); UROBILINOGEN,URINE NORMAL (NORMAL)
--- NOTE | 2019-05-07 01:22 | NUR ---
amnio swab negative, sve done, closed, thick and high. no vaginal discharge or odor noted. pericare given. Will keep pt on monitor and call dr with ua results.
[2019-05-07 01:28] LABS: BACTERIA,URINE TRACE /HPF
--- NOTE | 2019-05-07 01:36 | NUR ---
Dr. Valdez called and notified regarding pt's c/o pressure. UA results, FHR pattern and strip discussed with dr. discharge orders received after reactive NST.
--- NOTE | 2019-05-07 01:49 | NUR ---
pt off external monitors, enc pt to increase water intake, pt states has been drinking some soda pop and tea along with water. Enc pt to only drink 3-4liters of water in a 24hr period. Call clinic if pressure cont till wednesday. pt also states she has been more active on her feet recently and has not had her air conditioning on until yesterday 05/06/19. enc pt to rest often. Pt verbalized discharge instructions.
--- NOTE | 2019-05-07 02:03 | NUR ---
pt ambulated off unit with no s/s of distress noted.
--- NOTE | 2019-05-10 15:48 | Physician Query-Final Dx ---
HEATHER MARADIAGA 05/10/19 1548: Clinic Account Progress/Dx Physician Query: Please give diagnosis Need dx and weeks of gestation Date of Service May 07, 2019 at 00:55 ERVIN HURST MD 05/21/19 2213: Clinic Account Progress/Dx DIAGNOSIS: Diagnosis 1. IUP at 32w 5d 2. Pelvic pressure - non labor HEATHER MARADIAGA May 10, 2019 15:48 ERVIN HURST MD May 21, 2019 22:13
== END 2019-05-07 02:03 | disposition home or self-care (01) ==
LOC: WSo 00:55 → LDRP 00:55 → WSo 02:03
PROVIDERS: ATTEND Family Medicine
DX: O34.83 Maternal care for other abnormalities of pelvic organs, third trimester (principal); R10.2 Pelvic and perineal pain; Z3A.32 32 weeks gestation of pregnancy
CPT/HCPCS: 81000; 99213

== ENCOUNTER 2019-06-20 14:43 | Outpatient (CLI) | payer MEDICAID ==
[~2019-06-20] VITALS: Ht 170.2 cm; Wt 125.9 kg
[2019-06-20] MEDS ORDERED: FERR-84 PO (14:45)
[2019-06-23] MEDS ORDERED: IBUP-1773 PO (07:20)
[2019-06-23] MEDS ORDERED: DOCU-143 PO (07:20)
[2019-06-23] MEDS ORDERED: HYDR-4226 PO (07:20)
== END 2019-06-21 08:43 | disposition home or self-care (01) ==
LOC: PREOP 14:43
PROVIDERS: ATTEND Obstetrics & Gynecology
DX: Z01.818 Encounter for other preprocedural examination (principal)

== ENCOUNTER 2019-06-23 06:04 | Inpatient (IN) | payer MEDICAID | END 2019-06-25 18:10 | disposition home or self-care (01) | LOC: LDRP 06:04 ==